=== PATIENT | male | born 1960 | race Caucasian/White ===

== ENCOUNTER 2019-05-06 09:43 | Emergency (ER) | payer SELFPAY ==
[~2019-05-06] VITALS: Ht 170.2 cm; Wt 73.5 kg
--- NOTE | 2019-05-06 10:15 | NUR ---
Placed in room 6 . Placed on industrial engineering technologist, blood pressure machine and pulse oximeter. To gown for exam. Side rails up.
[2019-05-06 10:17] VITALS: BP_SYST 168
--- NOTE | 2019-05-06 10:20 | NUR ---
pt arrives from home w c/o LLQ abd pain x 3 days associated w/ N/V. Pt denies constipation. Pt denies fever.
--- NOTE | 2019-05-06 10:30 | NUR ---
ER at bedside examining patient.
--- NOTE | 2019-05-06 10:44 | NUR ---
pt returned from radiology
[2019-05-06 10:59] LABS: BASOPHILS # (AUTO) 0.1 K/uL (0.0-0.2); BASOPHILS % (AUTO) 0.9 % (0.0-2.0); EOSINOPHILS % (AUTO) 0.3 % (0.0-4.0); HEMATOCRIT 38.2 % (36-54); HEMOGLOBIN 13.1 g/dL (14.0-18.0); LYMPHOCYTES # (AUTO) 1.6 K/uL (1.0-5.5); MEAN CORPUSCULAR HEMOGLOBIN 31 pg (27-31); MEAN CORPUSCULAR HGB CONC 34 % (32-36); MEAN CORPUSCULAR VOLUME 90 fL (79.0-98.0); MONOCYTES # (AUTO) 1.5 K/uL (0.0-1.0); MONOCYTES % (AUTO) 11.6 % (1.7-9.3); NEUTROPHILS % (AUTO) 75.2 % (40.0-70.0); PLATELET COUNT (AUTO) 352 K/uL (130-430); RED BLOOD CELL COUNT(AUTO) 4.26 MIL/uL (4.2-6.2); RED CELL DISTRIBUTION WIDTH 13.4 % (9.0-15.0); WHITE BLOOD COUNT (AUTO) 13.3 K/uL (4.8-10.8)
[2019-05-06 11:15] LABS: CALCIUM 8.5 mg/dL (8.4-11.0); CREATININE 1.04 mg/dL (0.55-1.30); POTASSIUM 4.1 mmol/L (3.5-5.1)
[2019-05-06 11:21] LABS: ALBUMIN 3.2 g/dL (3.4-4.8); PROTHROMBIN TIME 9.9 SECS (9.5-12.5); TOTAL BILIRUBIN 0.4 mg/dL (0.0-1.0)
--- NOTE | 2019-05-06 13:15 | NUR ---
Labs are back, awaiting orders from
[2019-05-06] MEDS ORDERED: KETOROLAC TROMETHAMINE 60 MG/2 ML VIAL IM ONE (13:30)
[2019-05-06 14:04] VITALS: BP_SYST 168
--- NOTE | 2019-05-06 14:07 | NUR ---
Patient given written and verbal discharge instructions and verbalizes understanding. ER MD discussed with patient the results and treatment provided. Patient in stable condition. ID arm band removed. Rx of [place], Augmentin, and Motringiven. Patient educated on pain management and to follow up with PMD. Pain Scale 3/10. Opportunity for questions provided and answered. Medication side effect fact sheet provided.
--- NOTE | 2019-05-06 14:09 | NUR ---
provided pt w/ a meal. Pt is currently staying at a motel. Pt has adequate clothing. Pt's son will provide transportation
== END 2019-05-06 14:04 | disposition home or self-care (01) ==
LOC: SED 09:43
DX: K57.92 Diverticulitis of intestine, part unspecified, without perforation or abscess without bleeding (principal)
CPT/HCPCS: 36415; 74176; 80053; 81002; 82150; 83605; 83690; 85025; 85610; 85730; 96372; 99284; J1885